=== PATIENT | female | born 1965 | race Caucasian/White ===

== ENCOUNTER 2024-11-19 14:28 | Outpatient (AMB) | payer BC, SELFPAY ==
--- NOTE | 2024-11-19 14:25 | MHC.PC.OV ---
Vital Signs 11/19/24 14:30 Height 5 ft 0.87 in Weight 129 lb 4 oz BMI 24.5 BP 98/61 Blood Pressure Location Rt brachial Position Sitting Respiration 16 Pulse 70 Pulse Source Monitor Temp 97.7 F Temp Source Temporal Artery Scan Pulse Oximetry (%) 100 Intake Visit Reasons: Dilcia Ruano/ Dr. Yan Accompanied by: Spouse Allergies No Known Allergies Allergy (Verified 11/19/24 16:29) Medication List - Last Reconciled 11/19/24 by Amanda Hunter PA-C bupropion HCl XL 300 mg PO QAM omega-3 fatty acids 500 mg PO DAILY Tobacco use date assessed: 11/19/24 Dental Screening Dental Screen Date: 11/19/24 Did you have a dental visit in the last 12 months?: Yes Was dental information given to patient?: Patient has dentist HPI Dilcia Ruano/ Dr. Yan HPI Details The patient is a 59-year-old female presenting for a new patient appointment and preventative care. The patient has a history of hypercholesterolemia, for which she is taking omega-3 fatty acids as recommended by her previous physician in [place]. Her lipid profile shows a total cholesterol of 168 mg/dL, triglycerides at 66 mg/dL, HDL at 72 mg/dL, and LDL at 81 mg/dL, indicating good control. She has been diagnosed with Attention Deficit Hyperactivity Disorder (ADHD) and is currently on bupropion 300 mg daily, which she reports has been effective for her symptoms. The patient reports a history of hearing loss, which was evaluated years ago, and she is considering further evaluation and potential use of hearing aids. Her family history is significant for thyroid disorders, with two sisters affected, prompting consideration for thyroid ultrasound despite normal thyroid function tests. In terms of preventative care, she undergoes annual mammograms in [place], with the last one performed in November or December of the previous year. She had a colonoscopy five years ago in [place], which was normal, and she is due for another screening. Social History - Family: Patient has children and grandchildren residing in the [place], while her mother remains in [place]. - Travel: Frequently travels between [place] and the [facility], spending several months in each location. [facility] Medical History (Updated 11/19/24 @ 16:33 by Amanda Hunter PA-C) Preventative health care ADHD Mild hypercholesterolemia Hearing loss Thyroid nodule History of mammogram (~04/2024) Surgical History History of colonoscopy (~2019) Family History Mother No problems noted. Father Heart disease Social History Housing: House Alcohol intake: current Patient Tobacco Use Status: Never used Tobacco service: No Current occupational status: employed Cognitive needs: No Hearing needs: No Vision needs: Yes (rx glasses) Questionnaire PHQ-9 Over the last 2 weeks, how often have you been bothered by any of the following problems? 1. Little interest or pleasure in doing things: not at all 2. Feeling down, depressed, or hopeless: not at all 3. Trouble falling or staying asleep, or sleeping too much: not at all 4. Feeling tired or having little energy: not at all 5. Poor appetite or overeating: not at all 6. Feeling bad about yourself - or that you are a failure or have let yourself or your family down: not at all 7. Trouble concentrating on things, such as reading the newspaper or watching television: not at all 8. Moving or speaking so slowly that other people could have noticed. Or the opposite - being so fidgety or restless that you have been moving around a lot more than usual: not at all 9. Thoughts that you would be better off or of hurting yourself in some way: not at all Total score: 0 Depression Screening Interpretation: Negative Depression Screening Done: Yes 30067 - PHQ-9 Billing: Yes Source: Developed by Drs. Alejandro Muniz, Humaira Romero, Shreyas James and colleagues, with an educational riki from [employer]. Thrive Questionnaire Date Thrive assessed: 11/19/24 I am a: Patient What is your living situation today?: I have a steady place to live Within the past 12 months, did the food you bought not last and you didn't have the money to get more?: Never true Within the past 12 months, did you worry whether your food would run out before you got money to buy more?: Never true Do you have trouble paying for medicines?: No Do you have trouble getting transportation to medical appointments?: No Do you have trouble paying your heating and electricity bill?: No Do you have trouble taking care of your child, family member or friend?: No Do you have trouble with day-to-day activities such as bathing, preparing meals, shopping, managing finances, etc.?: No Are you currently unemployed and looking for a job?: No Are you interested in more education?: No Please select the resources that you would like help with: None THRIVE Score: 0 AUDIT C Alcohol Use Questionnaire (AUDIT-C) 1. How often do you have a drink containing alcohol?: 2-4 times a month Total Score: 2 Score Reviewed/Action Taken: No JOSE-7 AMB Questionnaire JOSE-7 Date JOSE - 7 assessed: 11/19/24 Feeling nervous, anxious, or on edge: 0 = Not at all Not being able to stop or control worryin = Not at all Worrying too much about different things: 0 = Not at all Trouble relaxin = Not at all Being so restless that it is hard to sit still: 0 = Not at all Becoming easily annoyed or irritable: 0 = Not at all Feeling afraid as if something awful might happen: 0 = Not at all Total JOSE-7 score (0-4 normal; 5-9 mild; 10-14 moderate; 15-21 severe): 0 Source: Developed by Drs. Alejandro Muniz, Humaira Romero, Shreyas James and colleagues, with an educational riki from [employer]. JOSE-7 Assessment Billing JOSE-7 Assessment Tool: JOSE-7 Assessment 13699 Review of Systems Const Details: - Cardiovascular: Denies chest pain or palpitations. - Endocrine: Denies thyroid-related symptoms. - Neurological: Reports hearing loss, denies other neurological symptoms. All systems reviewed & are unremarkable except as noted in HPI and below Physical exam (Primary Care) Vital Signs: Last Vital Signs Temp 97.7 F 11/19/24 14:30 Pulse 70 11/19/24 14:30 Resp 16 11/19/24 14:30 BP 98/61 11/19/24 14:30 Pulse Ox 100 11/19/24 14:30 Care Plan Goal for BP management: <140/90 at Goal BMI result Body Mass Index 24.5 Normal BMI Tobacco/Smoking Status: Tobacco use Status Tobacco use date assessed 11/19/24 11/19/24 14:28 Patient Tobacco Use Status Never used Tobacco 11/19/24 14:39 PHQ-9: PHQ-9 Score PHQ-9: Total score 0 11/19/24 14:48 Depression Screening Interpretation: Negative Thrive Assessment: Date of Thrive Assessment Date Thrive assessed 11/19/24 11/19/24 14:28 Const Other: Appearance: Alert. Oriented X3. No acute distress. Head: Normal external exam. Normocephalic. Atraumatic. Eyes: Pupils are equal, round, and reactive to light. Extraocular movements intact. Conjunctiva and sclera normal. Eyelids normal. Ears: External auditory canal normal. Tympanic membranes normal. Patient reports hearing issues and tinnitus since 2018. Throat: Pharynx normal. Uvula midline. Moist mucous membranes. Neck: Normal inspection. Neck supple. Full range of motion. No adenopathy. Thyroid Normal. No meningeal signs. No neck mass noted. Thyroid ultrasound recommended due to family history of thyroid issues. Cardiovascular: Normal heart rate and rhythm. Heart sound normal. No murmurs noted. Pulses normal throughout. Respiratory: No respiratory distress. Painless inspiration. Breath sounds normal. No wheezes/rales/rhonchi noted. Chest nontender. No accessory muscle usage noted or decreased air movement noted. Abdomen: Soft and nontender. Bowel sounds normal in all 4 quadrants. No distention noted. No organomegaly noted. No visible injury noted. Back: No costovertebral angle tenderness. Full range of motion noted. Skin: Skin warm and dry. Normal skin color. Normal skin turgor. No rashes/lesions/lacerations noted. Extremities: No lower extremity edema. Extremities exhibit normal range of motion. Extremities nontender. Neuro: Oriented X 3. No motor deficit. No sensory deficit. Reflexes normal. Office Procedures Flu Questionnaire Does the patient have a severe egg allergy?: No Does the patient have severe life threatening allergies?: No Does the patient have a fever or illness today?: No Has the patient ever had Guillain-[place] Syndrome?: No Has the patient ever had any past reaction to a flu shot?: No Immunizations Fluarix [id number] (PF) 45 mcg (15 mcg x 3)/0.5 mL IM syringe Performing Provider: Amanda Hunter PA-C Performing Location: [facility] Documented (not given) by: Jodi Clancy CMA on 11/19/24 14:48 Reason Not Given: Received Previously Results Reviewed Results Reviewed: - Labs: Total cholesterol 168 mg/dL, triglycerides 66 mg/dL, HDL 72 mg/dL, LDL 81 mg/dL. - Labs: Vitamin D level slightly elevated at 63-65 ng/mL. - Labs: Fasting glucose 99 mg/dL, Hemoglobin A1c 5.5%. Coding Level of Care Code New Pt Level 4 (20928) Complex EM visit Add On G2211 Diagnoses Mild hypercholesterolemia E78.00 ADHD F90.9 Hearing loss H91.90 Thyroid nodule E04.1 Preventative health care Z00.00 Additional Codes PHQ-9 - 54204 - PHQ-9 Billing: Yes ([id number]) JOSE-7 Assessment Billing - JOSE-7 Assessment Tool: JOSE-7 Assessment 24879 ([id number]) Time Spent (min) 55 Assessment & Plan Assessment & Plan (1) Mild hypercholesterolemia: Code(s): E78.00 - Pure hypercholesterolemia, unspecified Category: Medical Plan: The patient is managing her hypercholesterolemia with omega-3 fatty acids as advised by her previous physician. Her lipid profile is well-controlled, with total cholesterol at 168 mg/dL, triglycerides at 66 mg/dL, HDL at 72 mg/dL, and LDL at 81 mg/dL. (2) ADHD: Code(s): F90.9 - Attention-deficit hyperactivity disorder, unspecified type Category: Medical Plan: The patient is currently on bupropion 300 mg daily for ADHD, which she reports as effective. (3) Hearing loss: Code(s): H91.90 - Unspecified hearing loss, unspecified ear Category: Medical Plan: The patient reports a history of hearing loss and is considering further evaluation and potential use of hearing aids. (4) Thyroid nodule: Code(s): E04.1 - Nontoxic single thyroid nodule Category: Medical Plan: The patient has a family history of thyroid disorders, with two sisters affected, prompting consideration for a thyroid ultrasound despite normal thyroid function tests. (5) Preventative health care: Code(s): Z00.00 - Encounter for general adult medical examination without abnormal findings Category: Medical Plan: The patient undergoes annual mammograms in [place], with the last one performed in November or December of the previous year. The patient had a colonoscopy five years ago in [place], which was normal, and she is due for another screening. Plan Plan Patient was informed and verbally consented to the use of an ambient scribe for clinic note documentation during this visit. 1. Hypercholesterolemia The patient is managing her hypercholesterolemia with omega-3 fatty acids as advised by her previous physician. Her lipid profile is well-controlled, with total cholesterol at 168 mg/dL, triglycerides at 66 mg/dL, HDL at 72 mg/dL, and LDL at 81 mg/dL. 2. Attention Deficit Hyperactivity Disorder (Adhd) The patient is currently on bupropion 300 mg daily for ADHD, which she reports as effective. 3. Hearing Loss The patient reports a history of hearing loss and is considering further evaluation and potential use of hearing aids. 4. Family History Of Thyroid Disorders The patient has a family history of thyroid disorders, with two sisters affected, prompting consideration for a thyroid ultrasound despite normal thyroid function tests. 5. Preventative Care: Mammogram The patient undergoes annual mammograms in [place], with the last one performed in November or December of the previous year. 6. Preventative Care: Colonoscopy The patient had a colonoscopy five years ago in [place], which was normal, and she is due for another screening. During the visit, we discussed the patient's management of hypercholesterolemia with omega-3 fatty acids and reviewed her lipid profile, which is well-controlled. We also addressed her ADHD management with bupropion, which she finds effective, and considered further evaluation for her hearing loss, including the potential use of hearing aids. Given her family history of thyroid disorders, we discussed the possibility of a thyroid ultrasound despite normal thyroid function tests. Preventative care measures were reviewed, including her regular mammograms and the need for an upcoming colonoscopy. Orders: Orders Influenza [id number] Immunization Today Z23 - Encounter for immunization US thyroid Today E04.1 - Nontoxic single thyroid nodule Referrals Ear/Nose/Throat Referral H91.90 - Unspecified hearing loss, unspecified ear Speech and Hearing Referral H91.90 - Unspecified hearing loss, unspecified ear Medications: New omega-3 fatty acids 500 mg PO DAILY 90 caps 3RF bupropion HCl XL 300 mg PO QAM 90 tabs 3RF Patient Instructions: - Continue taking omega-3 fatty acids as prescribed for cholesterol management. - Maintain current bupropion regimen for ADHD. - Schedule a hearing evaluation for potential hearing aid fitting. - Consider a thyroid ultrasound due to family history of thyroid disorders. - Ensure to have a mammogram annually and schedule a colonoscopy as due.
[2024-11-19 14:30] VITALS: BP 98/61; PULSE 70; RESP 16; TEMP 36.5; O2SAT 100; BMI 24.5
== END 2024-11-19 15:25 | disposition home or self-care (01) ==
LOC: HO.HMCSH 14:28
PROVIDERS: PCP Internal Medicine; Visit Provider Physician Assistant Medical
DX: E78.00 Pure hypercholesterolemia, unspecified (principal); F90.9 Attention-deficit hyperactivity disorder, unspecified type; H91.90 Unspecified hearing loss, unspecified ear; E04.1 Nontoxic single thyroid nodule; Z00.00 Encounter for general adult medical examination without abnormal findings; Z23 Encounter for immunization

== ENCOUNTER → 2024-11-19 14:28 | Outpatient (BNVA) | payer BC, SELFPAY | PROVIDERS: PCP Internal Medicine; Visit Provider Physician Assistant Medical | DX: Z00.00 Encounter for general adult medical examination without abnormal findings (principal); E78.00 Pure hypercholesterolemia, unspecified; F90.9 Attention-deficit hyperactivity disorder, unspecified type; H91.90 Unspecified hearing loss, unspecified ear; E04.1 Nontoxic single thyroid nodule; Z79.899 Other long term (current) drug therapy; Z13.31 Encounter for screening for depression; Z13.39 Encounter for screening examination for other mental health and behavioral disorders | CPT/HCPCS: 90471; 96127 ==

== ENCOUNTER 2025-01-06 10:00 | Outpatient (AMB) | payer BC, SELFPAY ==
--- NOTE | 2025-01-06 10:01 | AM.OFFVISNUR ---
Intake Visit Reasons: flu vaccine Allergies No Known Allergies Allergy (Verified 11/19/24 16:29) Office Procedures Flu Questionnaire Does the patient have a severe egg allergy?: No Does the patient have severe life threatening allergies?: No Does the patient have a fever or illness today?: No Has the patient ever had Guillain-[place] Syndrome?: No Has the patient ever had any past reaction to a flu shot?: No Immunizations Fluarix [id number] (PF) 45 mcg (15 mcg x 3)/0.5 mL IM syringe Performing Provider: Amanda Hunter PA-C [facility] Administered by: MORENO Carrillo on 01/06/25 10:02 Dose Route Admin Location Dispensed Lot Number Expiration Date [facility] Operator Prefinish 0.5 mL IM Left Deltoid 0.5 mL [id number] 08/24/25 24702-666-39 [employer] VIS Given Date VIS Provided VIS Publication Date 01/06/25 Single Vaccine 24 Eligibility Eligibility Date Funding Source Not [facility] Eligible 01/06/25 Private Assessment & Plan Assessment & Plan Orders: Orders Influenza [id number] Immunization Today Z23 - Encounter for immunization Coding
--- OUTSIDE RECORDS SUMMARY | 2025-01-06 11:42 | XMS_ITS | Data Portability ---
Author Organization [facility], [address] Address [address] [place] [address] Assessment No assessment recorded. Plan of Treatment Reminders Order Date Submit Date Provider Last Modified By Organization Details Last Modified Time Details Appointments None recorded. Lab None recorded. Referral None recorded. Procedures None recorded. Surgeries None recorded. Imaging None recorded. Medication Orders prednisone [address] [id number] [address] [place], [address], 3 16:14:43 Allergy Relief (fluticason e) 50 mcg/actuati on nasal spray,suspe nsion [address] [id number], [address] [place], [address], 3 16:14:42 fexofenadin e-pseudoeph edrine ER 180 mg-240 mg tablet,ext. release [address] [id number], [address] [place], [address], 3 16:14:42 Patient TargetsNo targets recorded. Patient Instructions Encounter Date Encounter Id Patient Instructions Last Modified By Organization Details Last Modified Time 05/31/2022 [id number] cough: care instructions Not available 05/31/2022 16:14:40 Sinusitis is an infection of the lining of the sinus cavities in your head. Sinusitis often follows a cold. It causes pain and pressure in your head and face. In most cases, sinusitis gets better on its own in 1 to 2 weeks. But some mild symptoms may last for several weeks. Sometimes antibiotics are needed. if you are having problems. It's also a good idea to know your test results and keep a list of the medicines you take. How can you care for yourself at home? Take an ziia-xai-nuftlqd pain medicine. Avoid Ibuprofen, Aleve and Aspirin if . If the doctor prescribed antibiotics, take them as directed. Do not stop taking them just because you feel better. You need to take the full course of antibiotics. Be careful when taking nymn-mmf-smpidpr cold or influenza (flu) medicines and Tylenol at the same time. Many of these medicines have acetaminophen, which is Tylenol. Read the labels to make sure that you are not taking more than the recommended dose. Too much acetaminophen (Tylenol) can be harmful. Breathe warm, moist air from a steamy shower, a hot bath, or a sink filled with hot water. Avoid cold, dry air. Using a humidifier in your home may help. Follow the directions for cleaning the machine. Use saline (saltwater) nasal washes. This can help keep your nasal passages open and wash out mucus and bacteria. You can buy saline nose drops at a grocery store or drugstore. Or you can make your own at home by adding 1 teaspoon (5 millilitres) of salt and 1 teaspoon (5 millilitres) of baking soda to 2 cups (500 mL) of distilled water. If you make your own, fill a bulb syringe with the solution, insert the tip into your nostril, and squeeze gently. Blow your nose. Put a hot, wet towel or a warm gel pack on your face 3 or 4 times a day for 5 to 10 minutes each time. Try a decongestant nasal spray like oxymetazoline (Drixoral). Do not use it for more than 3 days in a row. Using it for more than 3 days can make your congestion worse. Not available 05/31/2022 16:14:38 Reason for Referral None Reported. Problems Name Problem SNOMED Code Status Onset Date Resolution Date Notes Provider Name and Address Organization Details Recorded Time Attention deficit hyperactivity disorder 275141630 Active 2022 [facility]NE Leblanc - [facility] 3 15:39:40 Problem Notes None recorded. Procedures Surgical History Date Name Laterality Status Provider Name and Address Organization Details Recorded Time Breast augmentation w/implt completed Deena He PA - [facility] 05/31/2022 15:38:37 ligation of fallopian tube completed Deena He PA - [facility] 05/31/2022 15:38:50 Imaging Results None recorded. Procedure Notes None recorded. Medical Equipment None Reported. Allergies No known drug allergies Medications Name Sig Start Date Stop Date Status Note LastModified by Organization Details LastModified Time prednisone 20 mg tablet TAKE 2 TABLETS BY MOUTH EVERY DAY IN THE MORNING FOR 5 DAYS active Not Available Not Available No t Available fluticasone propionate 50 mcg/actuatio n nasal spray,suspen hunter SPRAY 1 SPRAY BY INTRANASAL ROUTE EVERY DAY DIRECTED FOR 30 DAYS active Not Available Not Available Not Available fexofenadine -pseudoephed rine ER 180 mg-240 mg tablet,ext.r elease 24 hr Take 1 tablet every day by oral route in the evening for 10 days. 2022 active Not Available Not Available Not Avai lable Dexilant active Not Available Not Avai lable Not Available Vitals Date Recorded Body weight Oxygen saturation Oxygen saturation in Arterial blood by Pulse oximetry Pain severity - 0-10 verbal numeric rating [Score] - Reported Heart rate Respiratory rate Body temperature Systolic And Diastolic Provider Name and Address Organization Details Last Updated DateTime 3 12262.0 5 g 98 % 98 % 0 73 /min 20 /min 98.5 [degF] 109/70 mm[Hg] Deena He PA - [facility] 3 15:41:04 Social History Question Answer Notes LastModified by Organizat ion Details LastModified Time Tobacco Smoking Status Never Smoker Deena petit PA - [facility] 05/31/2022 15:38:13 Have You Had Direct Contact, Or Contact During Intimacy, With Monkeypox Rash, Scabs, Or Body Fluids From A Person With Monkeypox? No Information not available 05/31/2022 Have You Recently Traveled Abroad? No Information not available 05/31/2022 Sex: Unknown Functional Status Question Answer Note LastModified by Organizat ion Details LastModified Time Do you use any illicit or recreational drugs? No Information not available 05/31/2022 Do you or have you ever used any other forms of tobacco or nicotine? No Information not available 05/31/2022 What is your level of alcohol consumption? Occasional Information not available 05/31/2022 Mental Status None recorded. Family History Relationship Description Onset Age of this Age Resolved Age Notes LastModified by Organization Details LastModified Time Father No current problems or disability Not available 05/31 15:38:04 Mother No current problems or disability Not available 05/31 15:38:04 Medical History No medical history recorded. Gynecological HistoryNo gynecological history recorded. Obstetrics History GPAL:G 0 P 0 0 0 0 Immunizations Vaccine Type Date Status Note Provider Nam e and Address Organization Details Recorded Time COVID-19, mRNA, LNP-S, PF, 100 mcg/0.5mL dose or 50 mcg/0.25mL dose 06/17/2020 completed Deenala He null, PA - [facility] 05/31/2022 15:37:12 COVID-19, mRNA, LNP-S, PF, 100 mcg/0.5mL dose or 50 mcg/0.25mL dose 07/15/2020 completed Deena Neri null, PA - [facility] 05/31/2022 15:37:12 Past Encounters Encounter ID Performer Location Encounter Start Date Encounter Closed Date Diagnosis/Indication Diagnosis SNOMED-CT Code Diagnosis ICD10 Code Diagnosis IMO Codes Diagnosis [place] [id number] [place] [address] [address] 05/31/2022 13:45:52 05/31/2022 16:30:17 Acute sinusitis 05753851 J01.90 Health Concerns Section Related Observation LastModified by Organization Detai ls LastModified Time None Recorded Concern Status LastModified by Organization Details LastModified Time None Recorded Advance Directives Directive None Recorded Payers Insurance Date Sequence Insurance Name Policy Number Policy Marques Covered Member ID Marques Member ID Guarantor Name 05/31/2022 PROMPT PAY Susie Alba Notes Date Note Type Note Provider Name and Address Organization Details Recorded Time 3 text/html Sinus Complaints UCReported by PatientHPIFor location, patient reportssinus pain,facial pain, andsinus pressure. For associated symptoms, patient reportsdifficulty breathing,post nasal drip,nasal passage blockage __, andcoughbut reportsno fever,no nausea or vomiting,no sore throat,no ear fullness,no nasal itching,no eye itching, andno dizziness. For quality, patient reportsworseningbut reportsminimal discomfortandclear. For context, patient reportsworse with environmental exposurebut reportsno recent upper respiratory infection,no recent sick contacts, andnot worse with seasonal allergen exposure. For onset/timing, patient reportsworse in amandworse in pm. For duration, patient reportsfrequent. For severity, patient reportsmoderate. For risk factors, patient reportsno current smoking or tobacco useandno history of nasal trauma. For alleviating factors, patient reportsoral steroids. For aggravating factors, patient reportsworse during an upper respiratory infection (a cold)andworse with excess fatigue. For prior treatment, patient reportsoral decongestant. Shortness of BreathReported by Patient CoughReported by Patient Alban Rodriguez NP [address] [place], [address], PA - [facility] 05/31/2022 16:15:51 OBGyn Episode No OBEpisode recorded.
== END 2025-01-06 10:20 | disposition home or self-care (01) ==
LOC: HO.HMCSH 10:00
PROVIDERS: PCP Physician Assistant Medical; Visit Provider Physician Assistant Medical
DX: Z23 Encounter for immunization (principal)

== ENCOUNTER → 2025-01-06 10:00 | Outpatient (BNVA) | payer BC, SELFPAY | PROVIDERS: PCP Physician Assistant Medical; Visit Provider Physician Assistant Medical | DX: Z23 Encounter for immunization (principal) | CPT/HCPCS: 90471; 90656 ==

== ENCOUNTER 2025-01-19 15:25 | Outpatient (REF) | payer BC, SELFPAY ==
--- NOTE | ~2025-01-19 | US_ITS ---
EXAMINATION: US THYROID HISTORY: E04.1 - Nontoxic single thyroid nodule TECHNIQUE: Real-time grayscale ultrasound imaging was performed and images were reviewed. COMPARISON: There are no prior studies available for comparison. FINDINGS: SIZE: The right thyroid lobe measures 4.7 x 1.0 x 1.4 cm. The left thyroid lobe measures 4.7 x 0.9 x 1.5 cm. The isthmus measures 1 mm. FLOW: Flow to the gland is normal. ECHOGENICITY: The echotexture of the gland is homogeneous. NODULES: Nodule #: 1 Location: Mid to lower pole of the left thyroid lobe measuring 6 x 3 x 6 mm. Shape: Wider than tall (0 points) Margins: Smooth (0 points) Echotexture: n/a Composition: Cystic (0 points) Calcifications: Punctate calcifications (3 points) Total points: 3 TIRADS: TR3: Mildly suspicious. US/US thyroid IMPRESSION: Subcentimeter cystic nodule in the left thyroid lobe as described. ACR TI-RADS Guidelines TR1 (0 points): Benign. No follow-up or biopsy required TR2 (2 points): Not Suspicious. No biopsy or follow up indicated TR3 (3 points): Mildly Suspicious. FNA if >= 2.5 cm, Follow if >= 1.5 cm TR4 (4-6 points): Moderately Suspicious. FNA if >= 1.5 cm, Follow if >= 1.0 cm TR5 (>=7 points): Highly Suspicious. FNA if >= 1.0 cm, Follow if >= 0.5 cm Electronically signed by: Alejandro Salcido MD 01/19/2025 03:54 PM [facility] [place]
--- OUTSIDE RECORDS SUMMARY | 2025-01-19 19:02 | XMS_ITS | Data Portability ---
Author Organization [facility], [address] Address [address] [place] [address] Assessment No assessment recorded. Plan of Treatment Reminders Order Date Submit Date Provider Last Modified By Organization Details Last Modified Time Details Appointments None recorded. Lab None recorded. Referral None recorded. Procedures None recorded. Surgeries None recorded. Imaging None recorded. Medication Orders prednisone 20 mg tablet 2022 023 [id number] [address] [place], [address], 3 16:14:43 Allergy Relief (fluticason e) 50 mcg/actuati on nasal spray,suspe nsion 2022 023 [id number], [address] [place], [address], 3 16:14:42 fexofenadin e-pseudoeph edrine ER 180 mg-240 mg tablet,ext. release 24 hr 2022 023 [id number], [address] [place], [address], 3 16:14:42 Patient TargetsNo targets recorded. Patient Instructions Encounter Date Encounter Id Patient Instructions Last Modified By Organization Details Last Modified Time 05/31/2022 [id number] cough: care instructions Not available 05/31/2022 16:14:40 [...] care for yourself at home? Take an ffmg-fyd-ouhxhyj pain medicine. Avoid Ibuprofen, Aleve and Aspirin if . If the doctor prescribed antibiotics, take them as directed. Do not stop taking them just because you feel better. You need to take the full course of antibiotics. Be careful when taking eooj-mgk-jtiivhp cold or influenza (flu) medicines and Tylenol [...] Details Recorded Time Attention deficit hyperactivity disorder 287229454 Active 2022 [facility] 3 15:39:40 Problem Notes None recorded. Procedures [...] Vitals Date Recorded Body weight Oxygen saturation Pain severity - 0-10 verbal numeric rating [Score] - Reported Heart rate Respiratory rate Body temperature Systolic And Diastolic Provider Name and Address Organization Details Last Updated DateTime 3 46161.0 5 g 98 % 0 73 /min 20 /min 98.5 [degF] 109/70 mm[Hg] Deena He PA - [facility] 3 15:41:04 Social History Question Answer Notes LastModified by [employer] ion Details LastModified Time Tobacco Smoking Status [...] dose or 50 mcg/0.25mL dose 06/17/2020 completed Deena He null PA - [facility] 05/31/2022 15:37:12 COVID-19, mRNA, LNP-S, PF, 100 mcg/0.5mL dose or 50 mcg/0.25mL dose 07/15/2020 completed Deenala He null PA - [facility] 05/31/2022 15:37:12 Past Encounters Encounter ID Performer Location Encounter Start Date Encounter Closed Date Diagnosis/Indication Diagnosis SNOMED-CT Code Diagnosis ICD10 Code Diagnosis IMO Codes Diagnosis Note [id number] [place] [address] [address] 05/31/2022 13:45:52 05/31/2022 16:30:17 Acute sinusitis 11248762 J01.90 Health Concerns Section Related Observation LastModified [...] Rodriguez NP [address] [place], [address], PA - [facility] 05/31/2022 16:15:51 OBGyn Episode No OBEpisode recorded.
== END 2025-01-19 15:26 | disposition home or self-care (01) ==
LOC: HO.US 15:25
PROVIDERS: PCP Physician Assistant Medical; Visit Provider Physician Assistant Medical
DX: E04.1 Nontoxic single thyroid nodule (principal)
CPT/HCPCS: 76536

== ENCOUNTER → 2025-01-19 15:28 | Outpatient (BNV) | payer BC, SELFPAY | PROVIDERS: PCP Physician Assistant Medical; Visit Provider Radiology Diagnostic Radiology | DX: E04.1 Nontoxic single thyroid nodule (principal) | CPT/HCPCS: 76536 ==